=== PATIENT | female | born 1985 | race Caucasian/White ===

== ENCOUNTER 2017-08-03 08:08 | Emergency (ER) | payer BC, OTHER ==
[~2017-08-03] VITALS: Ht 167.6 cm; Wt 95.4 kg
[~2017-08-03 08:08] MED LIST: CIPR500T3 PO; LEVO75TA5 PO; OXYC-302 PO
[2017-08-03] MEDS ORDERED: HYDROmorphone 2 MG/ML, 1ML ONE (09:19)
[2017-08-03] MEDS ORDERED: ONDANSETRON 2MG/ML, 2ML ONE (09:20)
[2017-08-03] MEDS ORDERED: SODIUM CHLORIDE FLUSH 10ML SYR IVF ONE (09:30)
[2017-08-03 09:47] LABS: HEMATOCRIT 46.5 % (34.6-47.8); HEMOGLOBIN 15.5 g/dL (11.7-16.4); WHITE BLOOD COUNT 7.3 x10^3/uL (3.4-10)
[2017-08-03 10:00] LABS: ASPARTATE AMINO TRANSFERASE 75 U/L (15-37); BLOOD UREA NITROGEN 12 mg/dL (7-18)
[2017-08-03] MEDS ORDERED: HYDROmorphone 1 MG/ML, 1ML IVPush PRN (10:30)
[2017-08-03] MEDS ORDERED: ONDANSETRON 2MG/ML, 2ML IVPush ONE (10:30)
[2017-08-03 13:03] VITALS: BP 134/76
== END 2017-08-03 13:05 | disposition home or self-care (01) ==
LOC: ED 12:34
DX: N20.0 Calculus of kidney (principal); E06.3 Autoimmune thyroiditis; E11.9 Type 2 diabetes mellitus without complications; I10 Essential (primary) hypertension
CPT/HCPCS: 36415; 74176; 80053; 81001; 83690; 84703; 85025; 87086; 96374; 96375; 99285; J1170; J2405

== ENCOUNTER 2017-08-06 05:28 | Observation (INO) | payer BC ==
[~2017-08-06] VITALS: Ht 167.6 cm; Wt 95.5 kg
[2017-08-06 06:24] LABS: MICROSCOPIC AUTO
[2017-08-06 06:27] LABS: CULTURE INDICATED? YES
[2017-08-06 06:37] LABS: ANION GAP 11 mmol/L (5-15); CHLORIDE 104 mmol/L (98-107)
[2017-08-06 06:41] LABS: MEAN CORPUSCULAR HEMOGLOBIN 30.5 pg (27.0-34.8); MEAN CORPUSCULAR HGB CONC 35.5 g/dL (32.4-35.8); MEAN PLATELET VOLUME 8.8 fL (7.4-10.4); PLATELET COUNT 292 x10^3/uL (130-400); RED BLOOD COUNT 5.05 x10^6/uL (3.82-5.3); RED CELL DISTRIBUTION WIDTH 13.3 % (9.6-15.2)
[2017-08-06 06:42] LABS: ALBUMIN 3.5 g/dL (3.4-5.0)
[2017-08-06 06:46] LABS: CALCIUM 8.1 mg/dL (8.5-10.1)
[2017-08-06 07:01] LABS: BASOPHILS # (AUTO) 0.07 x10^3/uL (0-0.1); BASOPHILS % (AUTO) 1 % (0-1); EOSINOPHILS # (AUTO) 0.27 x10^3/uL (0-0.4); EOSINOPHILS % (AUTO) 3 % (1-7); LYMPHOCYTES # (AUTO) 3.84 x10^3/uL (1-3.4); LYMPHOCYTES % (AUTO) 44 % (22-44); MD SCAN; MONOCYTES # (AUTO) 0.55 x10^3/uL (0.2-0.8); MONOCYTES % (AUTO) 6 % (2-9); NEUTROPHILS # (AUTO) 3.95 x10^3/uL (1.8-6.8); NEUTROPHILS % (AUTO) 46 % (42-75)
[2017-08-06] MEDS ORDERED: SODIUM CHLORIDE 0.9% 1,000 ML IV ONE ×2 (07:52)
[2017-08-06] MEDS ORDERED: SODIUM CHLORIDE FLUSH 10ML SYR IVF PRN (08:00)
[2017-08-06] MEDS ORDERED: SODIUM CHLORIDE FLUSH 10ML SYR IVF ONE (08:00)
[2017-08-06] MEDS ORDERED: MORPHINE SULFATE 4 MG/ML, 1ML IVPush PRN (08:00)
[2017-08-06] MEDS ORDERED: ONDANSETRON 2MG/ML, 2ML IVPush ONE (08:00)
[2017-08-06] MEDS ORDERED: TAMS-11 PO (08:22)
[2017-08-06] MEDS ORDERED: ONDANSETRON 2MG/ML, 2ML ONE ×3 (08:23→16:05)
[2017-08-06] MEDS ORDERED: MORPHINE SULFATE 4 MG/ML, 1ML ONE (10:08)
[2017-08-06 10:12] VITALS: BP 134/73
[2017-08-06 10:31] LABS: HCG UR SG 1.018 (1.003-1.030)
[2017-08-06] MEDS ORDERED: PROPOFOL 10 MG/ML, 20ML ONE ×2 (14:28)
[2017-08-06] MEDS ORDERED: FENTANYL PF 250 MCG/5ML ONE (14:28)
[2017-08-06] MEDS ORDERED: MIDAZOLAM 1 MG/ML, 2ML ONE (14:28)
[2017-08-06] MEDS ORDERED: CEFAZOLIN 1,000 MG ONE (15:05)
[2017-08-06] MEDS ORDERED: MIDAZOLAM 1 MG/ML, 2ML IV PRN (16:00)
[2017-08-06] MEDS ORDERED: MEPERIDINE/PF 25MG/0.5ML IVPush PRN (16:00)
[2017-08-06] MEDS ORDERED: ACETAMINOPHEN 325 MG TABLET PO PRN (16:00)
[2017-08-06] MEDS ORDERED: EPHEDRINE 50 MG/ML, 1ML IVPush PRN (16:00)
[2017-08-06] MEDS ORDERED: HYDROmorphone 1 MG/ML, 1ML IV PRN (16:00)
[2017-08-06] MEDS ORDERED: FENTANYL PF 100 MCG/2ML IV PRN (16:00)
[2017-08-06] MEDS ORDERED: PROMETHAZINE 25 MG/ML, 1ML IV PRN (16:00)
[2017-08-06] MEDS ORDERED: LORazepam 2 MG/ML, 1ML IVPush PRN (16:00)
[2017-08-06] MEDS ORDERED: LABETALOL 5MG/ML, 20ML IV PRN (16:00)
[2017-08-06] MEDS ORDERED: ONDANSETRON 2MG/ML, 2ML IVPush PRN (16:00)
[2017-08-06] MEDS ORDERED: OXYcodone 5 MG/5 ML ORAL.SOL UDC PO PRN (16:00)
[2017-08-06] MEDS ORDERED: DEXAMETHASONE 4 MG/ML, 1ML ONE (16:05)
[2017-08-06] MEDS ORDERED: ACETAMINOPHEN 650 MG/20.3 ML UDC ONE (16:19)
[2017-08-06] MEDS ORDERED: OXYcodone 5 MG/5 ML ORAL.SOL UDC ONE (16:19)
[2017-08-06] MEDS ORDERED: FENTANYL PF 100 MCG/2ML ONE (16:30)
== END 2017-08-06 13:51 | disposition home or self-care (01) ==
LOC: ED 08:04 → INTOOBSV 08:19 → EDIP 08:19
PROVIDERS: ADMIT Urology; ATTEND Urology
DX: N23 Unspecified renal colic (principal); N20.1 Calculus of ureter; I10 Essential (primary) hypertension; E06.3 Autoimmune thyroiditis; E11.9 Type 2 diabetes mellitus without complications
CPT/HCPCS: 36415; 52332; 52341; 74000; 76000; 80048; 81001; 81025; 82040; 85025; 87086; 96374; 96375; 99285; C1726; C1758; C2617; G0378; J0690; J1100; J2250; J2405; J2704; J3010; J7030

== ENCOUNTER → 2020-09-26 | Outpatient (CLI) | payer OTHER ==
[~2020-09-26] MED LIST changes: -CIPR500T3 PO; +CIPR500T4 PO; +OMNIPAQUE 350 MG/ML, 150 ML BOTTLE ONE; -OXYC-302 PO; +OXYC1TAB14 PO; +TAMS-11 PO
== END | disposition home or self-care (01) ==
LOC: CFH 09:34
PROVIDERS: ATTEND Urology
DX: R31.29 Other microscopic hematuria (principal)
CPT/HCPCS: 74178; Q9967